=== PATIENT | male | born 1970 | race Caucasian/White ===

== ENCOUNTER 2020-02-10 07:16 | Emergency (ER) | payer OTHER, BC ==
[~2020-02-10] VITALS: Ht 177.8 cm; Wt 108.9 kg
[2020-02-10] MEDS ORDERED: CITALOPRAM HBR20 MG PO (07:27)
== END 2020-02-10 08:29 | disposition home or self-care (01) ==
LOC: ED 07:16
DX: S61.217A Laceration without foreign body of left little finger without damage to nail, initial encounter (principal); W26.8XXA Contact with other sharp object(s), not elsewhere classified, initial encounter; F17.200 Nicotine dependence, unspecified, uncomplicated; Z79.899 Other long term (current) drug therapy
CPT/HCPCS: 12002; 90471; 90715; 99282-25

== ENCOUNTER 2020-10-22 18:16 | Emergency (ER) | payer OTHER, BC ==
[~2020-10-22] VITALS: Ht 177.8 cm; Wt 104.3 kg
[~2020-10-22 18:16] MED LIST: CITALOPRAM HBR20 MG PO
[2020-10-22] MEDS ORDERED: ESCITALOPRAM OX20 MG PO (19:43)
[2020-10-22] MEDS ORDERED: HYDROCODON-ACE1 EA10 PO (21:05)
== END 2020-10-22 21:52 | disposition home or self-care (01) ==
LOC: ED 18:16
PROC: 2W3EX1Z Immobilization of Right Hand using Splint (ICD-10-PCS; principal; 2020-10-22)
DX: S62.231A Other displaced fracture of base of first metacarpal bone, right hand, initial encounter for closed fracture (principal); S83.92XA Sprain of unspecified site of left knee, initial encounter; F17.200 Nicotine dependence, unspecified, uncomplicated; V29.9XXA Motorcycle rider (driver) (passenger) injured in unspecified traffic accident, initial encounter
CPT/HCPCS: 29125; 73140; 73560; 99284-25

== ENCOUNTER 2022-04-09 08:24 | Emergency (ER) | payer OTHER ==
[~2022-04-09] VITALS: Ht 177.8 cm; Wt 108.9 kg
[~2022-04-09 08:24] MED LIST changes: +ESCITALOPRAM OX20 MG PO; +HYDROCODON-ACE1 EA10 PO
== END 2022-04-09 10:15 | disposition home or self-care (01) ==
LOC: ED 08:24
DX: S61.217A Laceration without foreign body of left little finger without damage to nail, initial encounter (principal); W26.9XXA Contact with unspecified sharp object(s), initial encounter; F17.200 Nicotine dependence, unspecified, uncomplicated; Z79.899 Other long term (current) drug therapy
CPT/HCPCS: 12001; 73140; 99283-25